=== PATIENT | female | born 1930 | race Caucasian/White ===

== ENCOUNTER 2018-12-29 18:16 | Inpatient (IN) | payer MEDICARE, MEDICAID ==
--- NOTE | 2018-12-29 18:55 | ED Physician Chart ---
ED Chief Complaint/HPI - Patient Information Date Seen:: 12/29/18 Time Seen:: 18:45 Chief Complaint:: increasing confusion History of Present Illness:: Patient is sent here for increasing confusion and refusing shower. Patient apparently is taking her medications. Historian:: Patient Review:: Transfer documents Reviewed ED Review of Systems - Review of Systems General/Constitutional: No fever, No chills, No weight loss, No weakness, No diaphoresis, No edema, No loss of appetite Skin: No skin lesions, No rash, No bruising Head: No headache, No light-headedness Eyes: No loss of vision, No pain, No diplopia ENT: No earache, No nasal drainage, No sore throat, No tinnitus Neck: No neck pain, No swelling, No thyromegaly, No stiffness, No mass noted Cardio Vascular: No chest pain, No palpitations, No PND, No orthopnea, No edema Pulmonary: No SOB, No cough, No sputum, No wheezing GI: No nausea, No vomiting, No diarrhea, No pain, No melena, No hematochezia, No constipation, No hematemesis G/U: No dysuria, No frequency, No hematuria Musculoskeletal: No bone or joint pain, No back pain, No muscle pain Endocrine: No polyuria, No polydipsia Psychiatric: No prior psych history, No depression, No anxiety, No suicidal ideation Hematopoietic: No bruising, No lymphadenopathy Allergic/Immuno: No urticaria, No angioedema Neurological: No syncope, No focal symptoms, No weakness, No paresthesia, No headache, No seizure, No dizziness, Confusion, No vertigo ED Past Medical History - Past Medical History Past Medical History: DM, Asthma/COPD, Dyslipidemia Family History: Other (unavailable) Social History: Non Smoker, No Alcohol, Care Facility Surgical History: other (unavailable) Psychiatricy History: Dementia Medication: Reviewed Family Medical History - Family Member Mother History Unknown: Yes ED Physical Exam - Physical Examination General/Constitutional: Awake, Well-developed, well-nourished, Alert, No distress, GCS 15, Non-toxic appearing, Ambulatory Head: Atraumatic Eyes: Lids, conjuctiva normal, PERRL Skin: Nl inspection, No rash ENMT: External ears, nose nl, Lips, teeth, gums nl Neck: No nuchal rigidity Respiratory: Nl effort/Exclusion, Clear to Auscultation Cardio Vascular: RRR, No murmur, gallop, rubs, NL S1 S2 GI: No tenderness/rebounding/guarding, No organomegaly, No hernia : No CVA tenderness Extremities: No tenderness or effusion, Full ROM Neuro/Psych: Normal gait, No focal deficits ED Labs/Radiology/EKG Results - Lab Results Results: Abnormal Lab Results 12/29/18 12/29/18 20:00 20:00 WBC 8.3 RBC 4.57 Hgb 12.8 Hct 37.8 L MCV 82.7 MCH 28.0 MCHC Differential 33.9 RDW 14.0 Plt Count 239 MPV 8.1 Neutrophils % 79.9 Lymphocytes % 12.9 L Monocytes % 5.6 Eosinophils % 1.4 Basophils % 0.2 Sodium 136 Potassium 4.2 Chloride 100 Carbon Dioxide 26.8 Anion Gap 13.4 BUN 28 H Creatinine 1.1 Est GFR ( Amer) TNP Est GFR (Non-Af Amer) TNP BUN/Creatinine Ratio 25.5 Glucose 120 H Calcium 8.9 Total Bilirubin 0.2 L AST 15 ALT 12 Alkaline Phosphatase 56 Total Protein 6.7 Albumin 4.2 Globulin 2.5 Albumin/Globulin Ratio 1.7 Triglycerides 83 Cholesterol 226 H LDL Cholesterol Direct 147 HDL Cholesterol 59 Ethyl Alcohol < 10 - EKG Interpretations Rate & Rhythm: normal sinus rhythm with a rate of 99 [place]vere: normal Comments:: Poor R-wave progression ED Septic Shock - . Is Septic Shock (SBP<90, OR Lactate>4 mmol\L) present?: No ED Reassessment (Disposition) - Reassessment Reassessment Condition:: Unchanged - Diagnosis Diagnosis:: Altered mental status; dementia - Patient Disposition Admitted to:: [facility] Admitting Medical Physician:: Oc Jean Admitting Psych Physician:: Delmi Noble Condition at Disposition:: Stable, Unchanged
[2018-12-29 20:23] LABS: % BASOPHILS 0.2 % (0.0-2.0); % EOSINOPHILS 1.4 % (0.0-5.0); % LYMPHOCYTES 12.9 % (20.0-50.0); % MONOCYTES 5.6 % (2.0-10.0); % NEUTROPHILS 79.9 % (40.0-80.0); EOSINOPHILE ABSOLUTE 0.1 Th/cmm (0.1-0.4); HEMATOCRIT 37.8 % (41.0-60); HEMOGLOBIN 12.8 gm/dL (12-16); LYMPHOCYTE ABSOLUTE 1.1 Th/cmm (1.5-3.0); MEAN CELL VOLUME 82.7 fl (81-100); MEAN CORPUSCULAR HGB CONC 33.9 pg (28.0-36.0); MEAN PLATELET VOLUME 8.1 fl; MONOCYTE ABSOLUTE 0.5 Th/cmm (0.3-1.0); NEUTROPHILE ABSOLUTE 6.6 Th/cmm (1.8-8.0); PLATELET COUNT 239 Th/cmm (150-400); RED BLOOD COUNT 4.57 Mil/cmm (3.80-5.20); WHITE BLOOD COUNT 8.3 Th/cmm (4.8-10.8)
[2018-12-29 20:37] LABS: ALB/GLOB RATIO 1.7 (1.0-1.8); ALBUMIN 4.2 gm/dL (3.7-5.3); ALKALINE PHOSPHATASE 56 U/L (34-104); ANION GAP 13.4 (7.0-16.0); BILIRUBIN,TOTAL 0.2 mg/dL (0.3-1.0); BUN - UREA NITROGEN 28 mg/dL (7-25); CALCIUM SERUM 8.9 mg/dL (8.6-10.3); CARBON DIOXIDE 26.8 mEq/L (21.0-31.0); CHLORIDE 100 mEq/L (98-107); CHOLESTEROL 226 mg/dL (<200); CREATININE - SERUM 1.1 mg/dL (0.6-1.2); GLUCOSE 120 mg/dL (70-105); HDL -HIGH DENSITY LIPOPROTEIN 59 mg/dL (23-92); POTASSIUM SERUM 4.2 mEq/L (3.5-5.1); SGOT 15 U/L (13-39); SGPT/ALT 12 U/L (7-52); SODIUM SERUM 136 mEq/L (136-145); TOTAL PROTEIN,SERUM 6.7 gm/dL (6.0-8.3); TRIGLYCERIDES 83 mg/dL (<150)
[2018-12-29 21:01] LABS: ACETAMINOPHEN < 10.0 ug/mL (10.0-30.0); SALICYLATES (ASPIRIN) < 25.0 mg/L (30.0-100.0)
[2018-12-29 22:53] VITALS: BP 141/62
[2018-12-30 07:20] LABS: CHOLESTEROL 237 mg/dL (<200); HDL -HIGH DENSITY LIPOPROTEIN 63 mg/dL (23-92); TRIGLYCERIDES 84 mg/dL (<150)
--- NOTE | 2018-12-30 11:47 | Psychiatric Evaluation ---
DATE OF SERVICE: 12/29/2018 IDENTIFYING INFORMATION: The patient is an 88-year-old female. CHIEF COMPLAINT: No answer. HISTORY OF PRESENT ILLNESS: The patient was admitted to the hospital because of confusion, refusing shower. She is compliant with the medication. The patient was a poor historian, was unable to tell me why she is here. She can tell me the date, could not tell me her age, she asked me to look at her records that I was holding in my hand. The patient apparently with a history of dementia. The patient when asked about sleep or appetite, she would not answer. She cannot tell me if she is or she has children. Unable to participate in a meaningful conversation or make safe plan for self-care, appeared to be confused. When I asked if she has prior psychiatrist, she said "I don't like psychiatrists." PAST PSYCHIATRIC HISTORY: Unobtainable, the patient denies. Yet, she states she does not like psychiatrists. The patient currently denies substance abuse problem. MEDICAL HISTORY: Diabetes mellitus, asthma, COPD, dyslipidemia. MEDICATIONS: The patient has been on Abilify 5 mg daily, Buspar 10 mg twice a day, hydralazine 25 mg at bedtime, hydrocortisone ointment, Atarax 25 mg at bedtime. She is also diabetic, on insulin and Namenda 10 mg twice a day. The patient also on Remeron 50 mg at bedtime. FAMILY AND SOCIAL HISTORY: Unobtainable. Unable to tell me how far she went to school, if she has any children, and whether she is or or or in any relationship. She does not know where she lives, what she is, why she is here. She denies substance abuse problem according to records. MENTAL STATUS EXAMINATION: The patient is appropriately dressed, not very well groomed. Her affect is constricted. Her thoughts are fragmented. Unable to tell me her age, date, where she is, why she is here. Unable to answer questions regarding suicide, homicide, she said "are you kidding." Unable to answer questions regarding sleep and appetite. She has been hard to redirect. Long and short term memory are poor. Insight and judgment are questionable. IMPRESSION: Possible bipolar disorder, dementia. MEDICAL DIAGNOSES: As per medical doctor. INITIAL TREATMENT PLAN: The patient will be continued with her medication. We will adjust medication as needed. We will do group therapy, milieu therapy, and individual therapy. ESTIMATED LENGTH OF STAY: 3-7 days. DISCHARGE CRITERIA: Decreasing agitation. After discharge, outpatient treatment. [facility]# [id number]
[2018-12-30] MEDS: INSULIN ASPART SLIDING SCALE 100 UNITS/ML UNIT SUBQ SCH ×2 (14:22→16:33)
[2018-12-30] MEDS: BUSPAR 10MG PO SCH ×2 (14:22→16:33)
--- NOTE | 2018-12-31 02:48 | History & Physical ---
ADMIT DATE: 12/30/2018 MEDICINE CONSULTATION CHIEF COMPLAINT: The patient is here for evaluation of increased confusion and psychosis. HISTORY OF PRESENT ILLNESS: The patient is essentially an 88-year-old female with history of senile dementia, diabetes type 2, chronic insomnia, hyperlipidemia and chronic depression, who is a resident of an assisted living facility. The patient was brought over to our psych facility for evaluation of increased confusion and psychosis. The patient was hallucinating and talking verbiage at her colleagues of assisted living facility. PAST MEDICAL HISTORY: As stated in HPI. MEDICATIONS: See med list from the facility. FAMILY HISTORY: Unknown. SOCIAL HISTORY: The patient is . Denies any tobacco or alcohol usage. REVIEW OF SYSTEMS: Unable to obtain due to patient chronic dementia. PHYSICAL EXAMINATION: VITAL SIGNS: Stable, afebrile. Blood pressure 120/69, pulse 73, respiratory rate 18. GENERAL: This is a healthy-appearing female, in no apparent distress. HEENT: PERRLA, EOMI. mucosa. NECK: Supple. CHEST: Lungs clear to auscultation. HEART: Regular rhythm, no murmur. ABDOMEN: Soft, nondistended. MUSCULOSKELETAL: No edema. NEUROLOGIC: Alert and oriented x 2. No focal findings noted. SKIN: No rash. LABORATORY DATA: The patient's cholesterol was 237, LDL 152. Liver function test is normal. Glucose 120. ASSESSMENT: My assessment essentially is; 1. Senile dementia with acute psychosis. I would like to rule out urinary tract infection. 2. Diabetes type 2, non-insulin dependent. 3. Hyperlipidemia. 4. Chronic insomnia. 5. Chronic depression. PLAN: 1. Continue psych meds and psych therapy session per psych team. 2. We will start the patient on Lipitor 20 mg at bedtime along with baby aspirin 81 mg q. day with treatment of her hyperlipidemia. Continue Remeron and Atarax as needed for chronic insomnia and depression. JOB# [id number]
[2018-12-31] MEDS: INSULIN ASPART SLIDING SCALE 100 UNITS/ML UNIT SUBQ SCH ×3 (06:58→16:34)
[2018-12-31] MEDS: Aspirin 81mg Chewable Tab PO SCH (08:54)
[2018-12-31] MEDS: BUSPAR 10MG PO SCH ×2 (09:00→16:26)
--- NOTE | 2018-12-31 16:24 | Progress Notes ---
DATE: 12/31/2018 Case was discussed with staff of the patient, reviewed records. The patient continues to be unpredictable and impulsive, needing redirection. Continues to be confused, unable to state a safe plan for self-care. Continues to have poor insight. No side effects of the medication, no sedation, no nausea, no extrapyramidal symptoms and we will continue outpatient group therapy, milieu therapy, adjust the medication as needed. [facility]# [id number]
[2018-12-31] MEDS: Atorvastatin Calcium 10 MG TAB PO SCH (20:46)
[2019-01-01] MEDS: Aspirin 81mg Chewable Tab PO SCH ×2 (09:23→09:30)
[2019-01-01] MEDS: BUSPAR 10MG PO SCH ×3 (09:24→17:20)
[2019-01-01] MEDS: INSULIN ASPART SLIDING SCALE 100 UNITS/ML UNIT SUBQ SCH ×2 (09:24→17:15)
[2019-01-01] MEDS: Atorvastatin Calcium 10 MG TAB PO SCH (20:58)
[2019-01-01 22:52] LABS: URINE SOURCE CATH
[2019-01-01 22:56] LABS: URINE BILIRUBIN NEGATIVE (NEGATIVE); URINE BLOOD NEGATIVE (NEGATIVE); URINE GLUCOSE (UA) NEGATIVE (NEGATIVE); URINE KETONE TRACE mg/dL (NEGATIVE); URINE LEUKOCYTE ESTERASE NEGATIVE (NEGATIVE); URINE NITRATE NEGATIVE (NEGATIVE); URINE PH 5.5 (4.6 - 8.0); URINE PROTEIN NEGATIVE (NEGATIVE); URINE UROBILINOGEN 0.2 E.U./dL (0.2 - 1.0)
[2019-01-01 22:58] LABS: URINE CLARITY CLEAR (CLEAR); URINE COLOR YELLOW; URINE MICROSCOPIC INDICATED? NO
--- NOTE | 2019-01-01 23:34 | Progress Notes ---
DATE: 01/01/2019 Case was discussed with staff of the patient, reviewed records. The patient continues to be confused, unpredictable, impulsive, unable to make safe plan for self-care, at times easily agitated, continues to be unable to participate in meaningful conversation or make safe plan for self-care, very poor insight. She is sleeping better, eating better and unable to tell me where she is, why she is here. I will continue to work with the patient in group therapy, milieu therapy, and adjust the medication as needed. JOB# [id number]
[2019-01-02] MEDS: Aspirin 81mg Chewable Tab PO SCH (09:29)
[2019-01-02] MEDS: INSULIN ASPART SLIDING SCALE 100 UNITS/ML UNIT SUBQ SCH ×2 (09:32→16:52)
[2019-01-02] MEDS: BUSPAR 10MG PO SCH ×2 (09:32→16:53)
--- NOTE | 2019-01-02 15:30 | Progress Notes ---
DATE: 01/01/2019 SUBJECTIVE: The patient is awake and alert. Less agitated. Remains confused. Lying in bed comfortably. No chest pain, no shortness of breath. According to nursing staff, the patient is not cooperative with giving a urine sample. OBJECTIVE: VITAL SIGNS: Stable and afebrile. GENERAL: No apparent distress. HEENT: Normal. LUNGS: Clear to auscultation. HEART: Regular rate and rhythm. No murmur. ABDOMEN: Soft, nontender, nondistended. GENITOURINARY: No CVA tenderness. PSYCHIATRIC: Poor insight, judgment. ASSESSMENT: 1. Senile dementia with acute psychosis. 2. Diabetes type 2, non-insulin dependent. 3. Hyperlipidemia. 4. Chronic insomnia. 5. Chronic depression. PLAN: I have ordered a nurse to get a straight cath, in and out for UA and C and S. Continue current psych meds and psychotherapy session. JOB# [id number]
--- NOTE | 2019-01-02 15:34 | Progress Notes ---
DATE: 12/31/2018 INTERNAL MEDICINE PROGRESS S NOTE SUBJECTIVE: The patient is awake, alert, remains pleasantly confused. The patient is less agitated today. OBJECTIVE: VITAL SIGNS: Stable, afebrile. GENERAL: No apparent distress. HEENT: Normal. LUNGS: Clear to auscultation. HEART: Regular rhythm, no murmur. ABDOMEN: Soft, nondistended. MUSCULOSKELETAL: No edema. ASSESSMENT: Essentially is, 1. Senile dementia with acute psychosis. 2. Diabetes type 2, non-insulin dependent. 3. Hyperlipidemia. 4. Chronic insomnia. 5. Chronic depression. PLAN: 1. Continue psych meds and psych therapy session per Psych team. 2. I have asked to remind the nurse again to make sure we get UA and C and S. In the meantime, continue Lipitor and baby aspirin 81 mg every day and continue Remeron, Atarax as needed for chronic insomnia and depression. JOB# [id number]
[2019-01-02] MEDS: Atorvastatin Calcium 10 MG TAB PO SCH (20:56)
[2019-01-03] MEDS: Aspirin 81mg Chewable Tab PO SCH (08:28)
[2019-01-03] MEDS: BUSPAR 10MG PO SCH ×2 (08:28→16:48)
[2019-01-03] MEDS: INSULIN ASPART SLIDING SCALE 100 UNITS/ML UNIT SUBQ SCH ×2 (08:28→16:48)
--- NOTE | 2019-01-03 14:40 | Progress Notes ---
DATE: 01/02/2019 SUBJECTIVE: An 88-year-old female, very confused, disoriented, does not know why she is here, does not know where she is. States she lives here. Does not know the year, does not know the date, making some nonsensical comments. Dr. Noble seeing the patient over the past few days, noting confusion, disorientation, not predictable, easily agitated, and irritable. ASSESSMENT: The patient remains symptomatic, refusing treatment at times, very poorly oriented, only knows her name, mumbling something, disorganized, sometimes yelling, refusing medications at times, threatening to throw things at staff. PLAN: We will continue to monitor. The patient remains symptomatic, aggressive. JOB# [id number]
--- NOTE | 2019-01-03 20:32 | Progress Notes ---
DATE: 01/02/2019 SUBJECTIVE: The patient is awake and alert, remains slightly confused. No restlessness or agitation per nursing staff. OBJECTIVE: VITAL SIGNS: Afebrile, vital signs stable. GENERAL: No apparent distress. HEENT: Normal. LUNGS: Clear to auscultation. HEART: Regular with no murmur. ABDOMEN: Soft, nondistended. NEUROLOGIC: No focal findings are noted. The patient moves all extremity. MUSCULOSKELETAL: No edema in lower extremity. ASSESSMENT: 1. Senile dementia with acute psychosis. 2. Diabetes type 2, noninsulin dependent. 3. Hyperlipidemia. 4. Chronic insomnia. 5. Chronic depression. PLAN: Continue current medication. The patient now continues with psychotherapy and treatment per Psych team. JOB# [id number]
[2019-01-03] MEDS: Atorvastatin Calcium 10 MG TAB PO SCH (21:33)
[2019-01-04] MEDS ORDERED: Eucerin Cream 16 oz Jar TP SCH (09:00)
[2019-01-04] MEDS: BUSPAR 10MG PO SCH (10:00)
[2019-01-04] MEDS: Aspirin 81mg Chewable Tab PO SCH (10:00)
[2019-01-04] MEDS: INSULIN ASPART SLIDING SCALE 100 UNITS/ML UNIT SUBQ SCH (10:00)
--- NOTE | 2019-01-04 13:07 | Progress Notes ---
DATE: 01/03/2019 SUBJECTIVE: The patient in the hospital, confused, refusing to shower. She has been compliant with treatment. The patient calmer, likely to some extent approaching her baseline, not really answering any questions, slept for about 5 hours, went to the bathroom by herself, remains very confused, disoriented, sometimes mumbling to self, but no agitation, no escalation of behaviors, no violent behaviors. Medications were reviewed including doses and frequencies, currently on Namenda, Remeron. ASSESSMENT: The patient is confused, disoriented, but not significantly calmer. PLAN: We will continue to monitor. The patient seems to be showing signs of improvement. Per social insurance administrator, the patient coming from [facility]. JOB# [id number]
--- NOTE | 2019-01-04 22:11 | Discharge Summary ---
DATE OF DISCHARGE: 01/04/2019 JUSTIFICATION FOR HOSPITALIZATION: Confused, refusing to shower, not compliant. HISTORY OF PRESENT ILLNESS: An 88-year-old female, confused. History of dementia, disoriented, unable to really have reasonable conversation and was more confused and refusing to shower. Concerns for her behaviors. PAST PSYCHIATRIC HISTORY: The patient apparently had been avoiding psychiatrist in the past. History of dementia. MEDICATIONS: Noted including Namenda, BuSpar, Abilify. PROVISIONAL DIAGNOSIS: Dementia, dementia with behaviors, possible bipolar diagnosis. PAST MEDICAL HISTORY: Please see full H and P. HOSPITAL COURSE: After initial assessment, the patient continued on Abilify, Namenda, also Remeron. Over the hospital course, her mood improved, affect improved somewhat. She was no longer agitated. No longer aggressive. The patient accepted to [facility]. The patient has a conservator, better sleep. No aggression, no agitation. CONDITION UPON DISCHARGE: Improved, allowing ADLs. Mood "okay." Affect flat. Thought processes were confused, disoriented. No SI, no HI, no psychosis. Better impulse control. PROVISIONAL DIAGNOSES: Mood, unspecified; dementia with behaviors. MEDICAL: Please see full H and P. PROGNOSIS: The patient follows up with outpatient mental health services and remains compliant with treatment. Prognosis will improve, otherwise guarded. [facility]# [id number]
--- NOTE | 2019-01-05 16:05 | Progress Notes ---
DATE: 01/03/2019 SUBJECTIVE: The patient is awake, alert. Remains confused and delusional. The patient at time not following instructions. The patient continued to talk to herself. OBJECTIVE: VITAL SIGNS: Stable, afebrile. GENERAL: No apparent distress. HEENT: Normal. LUNGS: Clear to auscultation. HEART: Regular rhythm, no murmur. ABDOMEN: Soft, nontender, nondistended. PSYCHIATRIC: Poor insight and judgment. ASSESSMENT: 1. Senile dementia with acute psychosis. 2. Probable urinary tract infection. 3. Diabetes type 2. 4. Hyperlipidemia. 5. Chronic insomnia. 6. Chronic depression. PLAN: Just continue psych meds and treatment per Psychiatry. [facility]# [id number]
--- NOTE | 2019-01-05 16:12 | Progress Notes ---
DATE: 01/04/2019 INTERNAL MEDICINE PROGRESS NOTE SUBJECTIVE: The patient is awake and alert. The patient is sitting up in bed. The patient is less agitated. Remains delusional. The patient remains pleasantly confused. No chest pain or shortness of breath. PHYSICAL EXAMINATION: VITAL SIGNS: Stable, afebrile. GENERAL: In no apparent distress. HEENT: Normal. LUNGS: Clear to auscultation. HEART: Regular rate and rhythm. ABDOMEN: Soft, nondistended. GENITOURINARY: No CVA tenderness. PSYCHIATRIC: Poor insight and judgment. ASSESSMENT: 1. Essentially probable urinary tract infection. 2. Senile dementia with acute psychosis. 3. Diabetes, type 2, non-insulin dependent. 4. Hyperlipidemia. 5. Chronic insomnia. 6. Chronic depression. PLAN: 1. I am still waiting to collect the patient's UA and C and S, remind nurses to do collection if possible; however, they stated the patient refuses. 2. Continue psychotropic medications per psychiatrist. 3. Continue current diabetic medications. JOB# [id number]
== END 2019-01-04 15:15 | DRG 885 ==
LOC: ER 18:16 → GERO2 21:07 → GERO 01-02 18:47 → GERO2 01-02 21:16
PROVIDERS: ADMIT Psychiatry & Neurology Psychiatry; ATTEND Psychiatry & Neurology Psychiatry
DX: F23 Brief psychotic disorder (principal); F03.91 Unspecified dementia, unspecified severity, with behavioral disturbance; N39.0 Urinary tract infection, site not specified; E11.9 Type 2 diabetes mellitus without complications; J44.9 Chronic obstructive pulmonary disease, unspecified; E78.5 Hyperlipidemia, unspecified; R41.82 Altered mental status, unspecified; G47.00 Insomnia, unspecified; F39 Unspecified mood [affective] disorder
CPT/HCPCS: 36415-UA; 80053-TC; 80061-TC; 80320-TC; 80329-TC; 81003-TC; 82948-90; 83036-90; 84436-TC; 84443-TC; 85025-TC; 86592-TC; 93005; J1815; Z7610